=== PATIENT | male | born 1995 | race Caucasian/White ===

== ENCOUNTER 2019-01-08 13:47 | Emergency (ER) | payer SELFPAY ==
[2019-01-08 14:02] VITALS: BP 117/87
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
== END 2019-01-08 14:30 ==
DX: R45.851 Suicidal ideations (principal); F10.99 Alcohol use, unspecified with unspecified alcohol-induced disorder; S30.1XXA Contusion of abdominal wall, initial encounter; R51 Headache; Y04.8XXA Assault by other bodily force, initial encounter